=== PATIENT | male | born 1965 | race Caucasian/White ===

== ENCOUNTER 2019-03-06 17:32 | Inpatient (IN) | payer OTHER ==
[~2019-03-06] VITALS: Ht 165.1 cm; Wt 93.0 kg
[~2019-03-06 17:32] MED LIST: AMLO-145 PO; ATOR40TA68 PO; DULA1.5P SQ; INSU100I12 SQ; INSU100I33 SC; LISI-471 PO; PARO40TA63 PO; REPA2TAB23 PO; RISP3TAB3 PO; RIVA1.5C2 PO; SITA1TAB5 PO; TRAZ-111 PO; [UNRECOGNIZED DRUG - CODE] SQ
[2019-03-06] MEDS ORDERED: SOD CHLORIDE 0.9% 1,000 ML IV STA ×2 (17:38→19:59)
[2019-03-06 17:55] VITALS: Ht 165.1 cm; Wt 93.0 kg
[2019-03-06] MEDS ORDERED: ONDANSETRON 4 MG INJ IV PRN ×2 (20:30→21:00)
[2019-03-06] MEDS ORDERED: ACETAMINOPHEN 325 MG TAB PO PRN (20:30)
[2019-03-06] MEDS ORDERED: DEXTROSE 5%-0.45% NACL 1,000 ML IV SCH (20:45)
[2019-03-06] MEDS ORDERED: NACL 0.9% 3 ML SYG IV SCH (21:00)
[2019-03-06] MEDS ORDERED: BISACODYL (EC) 5 MG TAB PO PRN (21:00)
[2019-03-06] MEDS ORDERED: DOCUSATE SODIUM 100 MG CAP PO PRN (21:00)
[2019-03-06] MEDS ORDERED: GLUCAGON 1 MG INJ IM PRN (21:30)
[2019-03-06] MEDS ORDERED: GLUCOSE GEL 15 GRAM TUBE BUCCAL PRN (21:30)
[2019-03-06] MEDS ORDERED: DEXTROSE 50% 50 ML SYRINGE IV PRN ×2 (21:30)
[2019-03-06] MEDS ORDERED: GLUCOSE GEL 15 GRAM TUBE PO PRN ×2 (21:30)
[2019-03-07] VITALS (7 sets, daily range): BP systolic 127–166; BP diastolic 69–96; PULSE 72–98; RESP 18–22
[2019-03-07] MEDS ORDERED: RISPERIDONE 2 MG TAB PO ONE (00:30)
[2019-03-07] MEDS ORDERED: traZODone 50 MG TAB PO ONE (00:30)
[2019-03-07] MEDS: INSULIN ASPART [NOVOLOG] 3 ML PEN SC SCH ×6 (01:00→20:32)
[2019-03-07] MEDS: ACCU-CHEK XX SCH (02:00)
[2019-03-07] MEDS ORDERED: hydrALAzine 20 MG INJ IV PRN (04:30)
[2019-03-07] MEDS: ACETAMINOPHEN 325 MG TAB PO PRN ×2 (07:53→16:49)
[2019-03-07] MEDS: RIVASTIGMINE 1.5 MG CAP PO SCH ×2 (09:00→20:26)
[2019-03-07] MEDS: ENOXAPARIN 40 MG/0.4 ML SYG SC SCH (09:17)
[2019-03-07] MEDS: LISINOPRIL 20 MG TAB PO SCH ×2 (09:18→20:24)
[2019-03-07] MEDS ORDERED: MAGNESIUM SULFATE 2 GM/50 ML 50 ML IVPB ONE (09:30)
[2019-03-07] MEDS: ASPIRIN 81 MG TAB PO SCH (12:12)
[2019-03-07] MEDS: AMLODIPINE 5 MG TAB PO SCH (12:12)
[2019-03-07] MEDS ORDERED: PAROXETINE 20 MG TAB PO SCH (21:00)
[2019-03-07] MEDS ORDERED: RISPERIDONE 2 MG TAB PO SCH (21:00)
[2019-03-07] MEDS ORDERED: RISPERIDONE 1 MG TAB PO SCH (21:00)
[2019-03-07] MEDS ORDERED: ATORVASTATIN 40 MG TAB PO SCH (21:00)
[2019-03-07] MEDS ORDERED: traZODone 50 MG TAB PO SCH ×2 (21:00)
[2019-03-08] MEDS: INSULIN ASPART [NOVOLOG] 3 ML PEN SC SCH ×3 (00:40→08:42)
[2019-03-08] MEDS: ACCU-CHEK XX SCH (02:00)
[2019-03-08 04:35] VITALS: BP 114/75; PULSE 91; RESP 22
[2019-03-08 07:19] VITALS: BP 148/81; PULSE 83; RESP 20
[2019-03-08] MEDS: ACETAMINOPHEN 325 MG TAB PO PRN (08:39)
[2019-03-08] MEDS: LISINOPRIL 20 MG TAB PO SCH (08:39)
[2019-03-08] MEDS: ASPIRIN 81 MG TAB PO SCH (08:39)
[2019-03-08] MEDS: AMLODIPINE 5 MG TAB PO SCH (08:40)
[2019-03-08] MEDS: RIVASTIGMINE 1.5 MG CAP PO SCH (08:40)
[2019-03-08] MEDS: ENOXAPARIN 40 MG/0.4 ML SYG SC SCH (08:42)
== END 2019-03-08 12:30 | disposition home or self-care (01) | DRG 638 ==
LOC: E/R 17:32 → 6WM 20:17
PROVIDERS: ADMIT Family Medicine; ATTEND Family Medicine
DX: E11.649 Type 2 diabetes mellitus with hypoglycemia without coma (principal); E87.2 Acidosis; G92 Toxic encephalopathy; F20.9 Schizophrenia, unspecified; I10 Essential (primary) hypertension; E78.5 Hyperlipidemia, unspecified; F32.9 Major depressive disorder, single episode, unspecified; R74.0 Nonspecific elevation of levels of transaminase and lactic acid dehydrogenase [LDH]; R94.31 Abnormal electrocardiogram [ECG] [EKG]; E87.6 Hypokalemia; E83.42 Hypomagnesemia; Z86.73 Personal history of transient ischemic attack (TIA), and cerebral infarction without residual deficits; Z79.4 Long term (current) use of insulin
CPT/HCPCS: 36415; 70450; 70551; 71045; 76705; 80048; 80053; 80061; 80307; 81003; 82140; 82962; 83036; 83605; 83735; 84443; 84484; 85025; 85610; 85730; 86704; 86706; 86803; 87086; 87340; 93005; 93306; 93880; J1650; J1815; J3475; J7030; J7042